=== PATIENT | female | born 2000 | race Asian ===

== ENCOUNTER 2024-10-14 12:07 | Emergency (ER) | payer SELFPAY ==
--- NOTE | 2024-10-14 12:40 | ER ---
Nurse's Notes [facility] Name: Rose Avelar Age: 23 yrs Sex: Female : 2000 Arrival Date: 10/14/2024 Time: 12:07 Bed DX2 Private MD: Diagnosis: Acute serous otitis media, right ear;Diffuse otitis externa, right ear;Dental caries, unspecified Presentation: 10/14 12:17 Chief complaint: Patient states: c/o R ear pain that started today also has R lower me1 molar pain from a broken tooth. Pain /. Reports fever and congestion, sob, fatigue over the weekend. Coronavirus screen: Vaccine status: Patient reports being unvaccinated. Ebola Screen: No symptoms or risks identified at this time. Initial Sepsis Screen: Does the patient meet any 2 criteria? HR > 90 bpm. Does the patient have a suspected source of infection? No. Patient's initial sepsis screen is negative. Risk Assessment: Do you want to hurt yourself or someone else? Patient reports no desire to harm self or others. Onset of symptoms is unknown. 12:17 Method Of Arrival: Ambulatory wi1 12:17 Acuity: ANTONY 3 me1 Triage Assessment: 12:19 General: Appears uncomfortable, well groomed, well developed, well nourished, Behavior me1 is calm, cooperative, appropriate for age. Pain: Complains of pain in right ear and lower right first molar (#30) and lower right first molar Pain does not radiate. Pain currently is 7 out of 10 on a pain scale. Quality of pain is described as aching, throbbing, Pain began 2-3 days ago. Is continuous. EENT: Reports pain in right ear and right jaw. Neuro: Level of Consciousness is awake, alert, obeys commands, Oriented to person, place, time, situation, Appropriate for age. Cardiovascular: Patient's skin is warm and dry. Respiratory: Airway is patent Respiratory effort is even, unlabored, Respiratory pattern is regular, symmetrical. GI: No signs and/or symptoms were reported involving the gastrointestinal system. : No signs and/or symptoms were reported regarding the genitourinary system. Derm: Skin is intact, is healthy with good turgor, Skin is normal. Musculoskeletal: No signs and/or symptoms reported regarding the musculoskeletal system. 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 - Infectious Disease History:: Denies. - Social history:: Smoking status: Patient denies any tobacco usage or history of. Screenin:47 [facility] ED Fall Risk Assessment (Adult) History of falling in the last 3 months, me1 including since admission No falls in past 3 months (0 pts) Confusion or Disorientation No (0 pts) Intoxicated or Sedated No (0 pts) Impaired Gait No (0 pts) Mobility Assist Device Used No (0 pt) Altered Elimination No (0 pt) Score/Fall Risk Level 0 - 2 = Low Risk Maintained a safe environment, Provided non-skid footwear, Hourly rounding (assess needs \T\ fall precautionary measures) done. Abuse screen: Denies threats or abuse. Nutritional screening: No deficits noted. Tuberculosis screening: No symptoms or risk factors identified. Assessment: 12:47 General: See triage assessment. wi1 Vital Signs: 12:17 BP 129 / 90; Pulse 100; Resp 19; Temp 98.3; Pulse Ox 100% ; Weight 85.73 kg; Height 5 me1 ft. 6 in. ; Pain 7/10; 13:03 BP 127 / 89; Pulse 97; Resp 17; Temp 98.4; Pulse Ox 100% ; me1 12:17 Body Mass Index 30.51 (85.73 kg, 167.64 cm) me1 12:17 Pain Scale: Adult wi1 ED Course: 12:11 Patient arrived in ED. im 12:12 John Lira MD is Attending Physician. lore 12:19 Triage completed. me1 12:19 Arm band placed on Patient placed in waiting room. me1 12:46 Julita Brandt, ARMEN is Primary Nurse. me1 12:47 Patient has correct armband on for positive identification. Call light in reach. wi1 Provided Education on: POC. Verbalized understanding.. 12:47 No provider procedures requiring assistance completed. Patient did not have IV access me1 during this emergency room visit. Administered Medications: 12:56 Drug: Rocephin (cefTRIAXone) IM 1 grams IM once Route: IM; Site: left deltoid; me1 13:03 Follow up: Response: No adverse reaction me1 12:56 Drug: Ibuprofen PO 600 mg PO once Route: PO; me1 13:03 Follow up: Response: No adverse reaction me1 12:56 Drug: Amoxicillin-Clavulanate PO 875 mg PO once Route: PO; me1 13:03 Follow up: Response: No adverse reaction me1 Medication: 12:47 VIS not applicable for this client. me1 Outcome: 12:39 Discharge ordered by . lore 13:04 Discharged to home ambulatory, me1 13:04 Condition: stable 13:04 Discharge instructions given to patient, Instructed on discharge instructions, follow up and referral plans. medication usage, Demonstrated understanding of instructions, follow-up care, medications, Prescriptions given X 3, 13:04 Patient left the ED. me1 Signatures: John Lira MD MD cha Mendoza, Itzel im Eddleman, Michelle, ARMEN RN me1
--- NOTE | 2024-10-14 12:40 | EDPHYS ---
Physician Documentation [facility] Name: Rose Avelar Age: 23 yrs Sex: Female : 2000 Arrival Date: 10/14/2024 Time: 12:07 Bed DX2 Private MD: ED Physician John Lira HPI: 10/14 12:34 This 23 yrs old Female presents to ER via Ambulatory with complaints of [facility] Toothache, Ear Pain. 12:34 The patient presents with broken tooth/teeth, pain, swelling. The problem is located in [facility] the lower right first molar. Onset: The symptoms/episode began/occurred 2 day(s) ago. Duration: The symptoms are continuous, and are steadily getting worse. Modifying factors: The symptoms are alleviated by nothing, the symptoms are aggravated by nothing. Associated signs and symptoms: The patient has no apparent associated signs or symptoms. Severity of symptoms: At their worst the symptoms were moderate, in the emergency department the symptoms are unchanged. The patient has experienced similar episodes in the past, a few times. 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 - Infectious Disease History:: Denies. - Social history:: Smoking status: Patient denies any tobacco usage or history of. ROS: 12:36 Constitutional: Negative for fever, chills, and weight loss, Eyes: Negative for injury, lore pain, redness, and discharge, Neck: Negative for injury, pain, and swelling, Cardiovascular: Negative for chest pain, palpitations, and edema, Respiratory: Negative for shortness of breath, cough, wheezing, and pleuritic chest pain, Abdomen/GI: Negative for abdominal pain, nausea, vomiting, diarrhea, and constipation, Back: Negative for injury and pain, : Negative for injury, bleeding, discharge, and swelling, MS/Extremity: Negative for injury and deformity, Skin: Negative for injury, rash, and discoloration, Neuro: Negative for headache, weakness, numbness, tingling, and seizure, Psych: Negative for depression, anxiety, suicide ideation, homicidal ideation, and hallucinations, Allergy/Immunology: Negative for hives, rash, and allergies, Endocrine: Negative for neck swelling, polydipsia, polyuria, polyphagia, and marked weight changes, 12:36 ENT: Positive for dental pain, ear pain, Exam: 12:36 Constitutional: This is a well developed, well nourished patient who is awake, alert, lore and in no acute distress. Head/Face: Normocephalic, atraumatic. Eyes: Pupils equal round and reactive to light, extra-ocular motions intact. Lids and lashes normal. Conjunctiva and sclera are non-icteric and not injected. Cornea within normal limits. Periorbital areas with no swelling, redness, or edema. Neck: Trachea midline, no thyromegaly or masses palpated, and no cervical lymphadenopathy. Supple, full range of motion without nuchal rigidity, or vertebral point tenderness. No Meningismus. Chest/axilla: Normal chest wall appearance and motion. Nontender with no deformity. No lesions are appreciated. Cardiovascular: Regular rate and rhythm with a normal S1 and S2. No gallops, murmurs, or rubs. Normal PMI, no JVD. No pulse deficits. Respiratory: Lungs have equal breath sounds bilaterally, clear to auscultation and percussion. No rales, rhonchi or wheezes noted. No increased work of breathing, no retractions or nasal flaring. Abdomen/GI: Soft, non-tender, with normal bowel sounds. No distension or tympany. No guarding or rebound. No evidence of tenderness throughout. Back: No spinal tenderness. No costovertebral tenderness. Full range of motion. Skin: Warm, dry with normal turgor. Normal color with no rashes, no lesions, and no evidence of cellulitis. MS/ Extremity: Pulses equal, no cyanosis. Neurovascular intact. Full, normal range of motion., bilateral aka Neuro: Awake and alert, GCS 15, oriented to person, place, time, and situation. Cranial nerves II-XII grossly intact. Motor strength 5/5 in all extremities. Sensory grossly intact. Cerebellar exam normal. Normal gait. 12:36 ENT: Ear canal(s): erythema, that is minimal, that is moderate, of the right canal, Mouth: Lips: normal, Oral mucosa: moist, Gums: noted to have cellulitis, on the lower right first molar, Tongue: is normal, abscess, is not appreciated, Dental exam: fractured teeth are noted, specifically the lower right first molar (#30), Vital Signs: 12:17 BP 129 / 90; Pulse 100; Resp 19; Temp 98.3; Pulse Ox 100% ; Weight 85.73 kg; Height 5 me1 ft. 6 in. ; Pain 7/10; 13:03 BP 127 / 89; Pulse 97; Resp 17; Temp 98.4; Pulse Ox 100% ; me1 12:17 Body Mass Index 30.51 (85.73 kg, 167.64 cm) me1 12:17 Pain Scale: Adult me1 MDM: 12:12 Medical Screening Exam initiated [facility] 12:37 Differential diagnosis: otitis media, otitis externa, ruptured TM, foreign body, acute lore otalgia, cerumen impaction, barotrauma , serotympanum, dental caries, gingivitis, dental abscess, gingivostomatitis. Data reviewed: vital signs, nurses notes. Consideration of Admission/Observation Escalation of care including admission/observation considered. I considered the following discharge prescriptions or medication management in the emergency department Medications were administered in the Emergency Department. See MAR. Test considered but Not performed: Labs: NO CBC , NO CMP. Care significantly affected by the following chronic conditions: NONE. Administered Medications: 12:56 Drug: Rocephin (cefTRIAXone) IM 1 grams IM once Route: IM; Site: left deltoid; me1 13:03 Follow up: Response: No adverse reaction me1 12:56 Drug: Ibuprofen PO 600 mg PO once Route: PO; me1 13:03 Follow up: Response: No adverse reaction me1 12:56 Drug: Amoxicillin-Clavulanate PO 875 mg PO once Route: PO; me1 13:03 Follow up: Response: No adverse reaction me1 Disposition Summary: 10/14/24 12:39 Discharge Ordered Notes: Location: Home lore Problem: new lore Symptoms: have improved lore Condition: Stable lore Diagnosis - Acute serous otitis media, right ear lore - Diffuse otitis externa, right ear lore - Dental caries, unspecified lore Followup: lore - With: Private Physician - When: 2 - 3 days - Reason: Recheck today's complaints, Continuance of care, Re-evaluation by your physician Discharge Instructions: - Discharge Summary Sheet lore - Dental Pain lore - Otitis Externa lore - Otitis Externa, [id number] lore - Otitis Media, Adult, [id number] lore - Dental Pain, [id number] lore - Diet and Dental Disease lore Forms: - Medication Reconciliation Form lore - Antibiotic Education lore - Prescription Opioid Use lore - Patient Portal Instructions lore - Leadership Thank You Letter lore - Work release form me1 Prescriptions: - Amoxicillin 500 mg Oral Capsule - take 1 capsule ORAL route every 8 hours for 10 days; 30 tablet; Refills: 0, lore Product Selection Permitted - Ibuprofen 600 mg Oral Tablet - take 1 tablet ORAL route every 6 hours As needed take with food; 30 tablet; lore Refills: 0, Product Selection Permitted - Ciprodex 0.3-0.1 % Otic drops, suspension - instill 4 drops OTIC route every 12 hours for 7 days , for ears ONLY; 7.5 lore milliliter; Refills: 0, Product Selection Permitted Signatures: John Lira MD MD cha Eddleman, Michelle, RN RN me1
[2024-10-14] MEDS ORDERED: LIDOCAINE 1% MPF 2 ML AMPULE ONE (12:50)
[2024-10-14] MEDS ORDERED: AMOX/K CLAV 875 MG TAB ONE (12:50)
[2024-10-14] MEDS ORDERED: CEFTRIAXONE 1000 MG/VIAL ONE (12:50)
[2024-10-14] MEDS ORDERED: IBUPROFEN 200 MG TAB PO ONE (12:50)
[2024-10-14 13:13] VITALS: O2SAT 100
[2024-10-14 13:15] VITALS: BP 127/89; TEMP 98.4
== END 2024-10-14 13:04 | disposition home or self-care (01) ==
LOC: ER 12:07
DX: H65.01 Acute serous otitis media, right ear (principal); H60.311 Diffuse otitis externa, right ear; K02.9 Dental caries, unspecified
CPT/HCPCS: 96372; 99284; J0696